=== PATIENT | female | born 1970 | race Caucasian/White ===

== ENCOUNTER 2020-09-03 10:00 | Outpatient (RCR) | payer OTHER, SELFPAY ==
--- NOTE | 2020-08-05 14:27 | HP.PTEVAL_ITS ---
Patient's Visit Information GUDELIA RAMIREZ is a 49 year old F referred to Physical Therapy by BYRON ROCK with a diagnosis of ANTERIOR LUMBAR FUSION 06/23/20. Date of Evaluation: 08/05/20 Physical Therapist: India Hogan, PT, Cert MDT - Visit Plan Frequency: 2-3x /Week Duration: 4-6 Weeks Plan: NO US OR E-STIM. CP AND/OR HOT PACK OK. POSTURE CORRECTION/STRENGTHENING, INSTRUCTION IN APPROPRIATE BODY MECHANICS AND ACTIVITY MODIFICATIONS. DLS STARTING WITH A NEUTRAL SPINE PROGRESSING ROM TOLERATED. CANDELARIA LE ROM, STRETCHING AND STRENGTHENING. HEP INSTRUCTION. 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 TENATIVE RTW DATE IS UNKNOWN. WORK INVOLVES A LOT OF EQUIPMENT MOVING AND PATIENT REPOSITIONING. Disability: SHORT TERM. Present symptoms: LOW BACK PAIN AND LEFT THIGH PAIN. SOME TINGLING IN THE BACK OF L THIGH AT TIMES. NO RIGHT LE SX'S EXCEPT RIGHT HIP AND GLUT TIGHTNESS. Present since: ABOUT A YEAR THEN EXACERBATED BY A FALL IN DECEMBER 2019. Pain Scale: WORST 6/10, LEAST 4/10. Currently: 6/10. Commenced as a result of: CHRONIC. Symptoms at onset: BACK AND LLE. Worse: PROLONGED SITTING, PROLONGED STANDING, BENDING, PUTTING ON SHOES. Better: IBUPROFEN, ICE, LYING DOWN. Disturbed sleep: NO. Previous history/Previous treatment: ABOUT 10 YEAR HISTORY OF LOW BACK PAIN. HAS PROGRESSIVELY GOT WORSE. CHIROPRACTIC. CHARLETTE'S. PT. PAIN PATCHES. PAIN PILLS. PATIENT REPORTS THE FALL DOWN THE GARAGE STEPS EVENTUALLY LEAD TO HAVING SURGERY. Treatment this episode: 06/23/[address] ROCK. Coughing/sneezing/straining: NEGATIVE. Gait: WALKING ON TREADMILL ABOUT 2 MILES A DAY. PATIENT REPORTS DECREASED STRIDE AND PAIN INCREASES OVER TIME MAKING IT MORE DIFFICULT TO CUSTODIAL OFFICER HER LEFT FOOT. Difficulty initiating urinatin: NO. Accidents: FALL. Unexplained weight loss: NO. Imaging: FOLLOW UP WITH DR. ROCK PENDING TUESDAY WITH EXPECTED X-RAY. S/P BACK SX 06/23/20: L5S1 DISCECTOMY, INSERTION OF BIOMECHANICAL DEVICE (ALIF), INSERTION OF ANTERIOR SPINAL INSTRUMENTATION, ANTERIOR INTERBODY ARTHRODESIS. PMH: CERVICAL DISC REPLACEMENTS. MOBI-C C5-C7 5 YEARS AGO AT [facility] BY DR. PANDYA. PALINDRO ARTHRITIS - SIMILAR TO RA. HYPOTHYROIDISM. R KNEE SURGERY - RECOVERED. CHRONIC THORACIC DISC HERNIATIONS AND L45 DISC HERNIATION NOT REPAIRED IN CURRENT SX BECAUSE PATIENT REPORTS IT WASN'T BAD ENOUGH. RESTRICTIONS: 2 WEEKS AGO BENDING AND TWISTING RESTRICTION WAS LIFTED. NO LIFTING > 30 LBS. UP TO ABOUT 8 LB DUMBELLS WITH BICEP CURLS. OTHER: FOR WORK NEEDS TO BE ABLE TO LIFT UP TO 50 LBS AND CARRY 25 LBS A DISTANCE. OTHER: PATIENT REPORTS SHE PUSHED TO GET SOME OF HER RESTRICTIONS LIFTED. - Objective Sitting/Standing Posture: FAIR. Lordosis: REDUCED. Lateral shift: NO. Relevant shift: N/A. Other Observations: INDEP GUARDED GAIT AND TRANSFERS. Motor deficit: CANDELARIA LE'S GROSSLY 4-/5 WITH MMT'ING. Sensory deficit: CANDELARIA LE LIGHT TOUCH SENSATION INTACT AND SYMMETRICAL. ROM deficit: TIGHT CANDELARIA LE HS'S. Reflexes: 2/3 CANDELARIA LE'S. Dural Signs: POSITIVE CANDELARIA LE'S. Lumbar mvmt loss: flex - MOD. ext - PIA. R SG - PIA. L SG - PIA. PATIENT C/O BACK TIGHTNESS AND BURNING WITH LUMBAR ROM TESTING. Core strength: POOR. Palpation: ANTERIOR ABDOMINAL INCISION LOOKS GOOD WITHOUT ANY SIGNS OF INFECTION. TREATMENT: NEUROMUSCULAR REEDUCATION - RETRAINING OF MVMT AND POSTURE FOR SITTING, LYING AND STANDING ACTIVITIES. INITIATED HEP WITH ISO ABDOMINALS AND CANDELARIA LE DURAL STRETCHING. - Goals Goal 1:: DECREASE C/O LOW BACK AND CANDELARIA LE SX'S. Goal Time Frame: 4-6 Weeks Goal 2:: IMRPOVE PERSONAL CARE, LIFTING, SITTING, STANDING, SOCIAL LIFE, TRAVEL, HOMEMAKING AND WORK FUNCTION. Goal Time Frame: 4-6 Weeks Goal 3:: INSTRUCT IN PROPHYLAXIS Goal Time Frame: 4-6 Weeks - Anticipated Interventions Patient/Client Instruction: Educate patient on: Condition, Plan of Care For the Purpose of:: To improve self management Therapeutic Exercise to Include: Strength training, Body mechanics, Postural training, Flexibilty training, Neuromotor development, In an aquatic setting, Dynamic Lumbar Stabilization Comment: CONSIDER AQUATIC THERAPY. DISCUSSED WITH PATIENT. For the Purpose of:: To decrease pain, To improve muscle performance and motor function, To increase tolerance to activity/condition/position, To improve ability of physical actions for home/community/work/leisure Thank you for the opportunity to evaluate your patient. For Medicare and Medicare HMO plans, please review the plan of care and approve it. It will need to be FAXED BACK to us at [phone] for Medicare purposes. For Medicare only, by signing this I certify the plan of care. Please let me know if there are questions or concerns regarding this plan of care. Physician Signature: Date:
--- NOTE | 2020-09-03 13:25 | HP.PTDCSUM ---
It has been my pleasure to treat GUDELIA RAMIREZ referred by BYRON ROCK, with the diagnosis of ANTERIOR LUMBAR FUSION 06/23/20 for a total of 11 visit(s). Discharge Date: Please see the following information for a summary of their discharge status. Subjective: PATIENT REPORTS SHE IS ABOUT 75% BETTER. REPORTS SHE HAS A VIRTUAL FOLLOW UP WITH DR. ROCK 09/19/20 AND TENTATIVE RTW 09/23/20. PATIENT REPORTS SHE FEELS READY TO GO BACK TO WORK WITH MORE BREAKS BUT DOESN'T HAVE ANY CONCERNS ABOUT DOING HER JOB FUNCTIONS. PATIENT REPORTS HER STRENGTH AND ROM ARE BETTER. SHE REPORTS HER ACTIVITY TOLERANCE IS ALSO BETTER. PATIENT REPORTS HER LEFT LEG DOES STILL FEEL WEAKER THAN THE RIGHT AND SHE STILL GETS L LE NUMBNESS THAT DOESN'T LAST MORE THAN A FEW HOURS IF SHE [id number]. PATIENT REPORTS INDEP WITH HOME EX PROGRAM. PATIENT REPORTS SHE FEELS READY TO CONTINUE CONDITIONING ON HER OWN AT THIS POINT. PATIENT HAS A HOME GYM. LOW BACK Pain Intensity (Out of 10): 2 L HIP Pain Intensity (Out of 10): 2 ABDOMINAL INCISION AREA Pain Intensity (Out of 10): N/A % Improvement: 75 Objective/Function: Motor deficit: CANDELARIA LE'S GROSSLY 5/5 WITH MMT'ING EXEPT RIGHT HIP 4/5 AND L HIP 4-/5. Sensory deficit: CANDELARIA LE LIGHT TOUCH SENSATION INTACT AND SYMMETRICAL. PATIENT WAS SEEN TODAY FOR RE-ASSESSMENT OF PROGRESS TOWARD THE SET PT GOALS AND THE NEED FOR FURTHER PHYSICAL THERAPY VS READINESS FOR DISCHARGE. PATIENT HAS MADE GOOD PROGRESS TOWARD ALL PT GOALS AND IS APPROPRIATE FOR DISCHARGE TO [facility] AT THIS TIME. PATIENT IS AGREEABLE. SHE DOES STILL DEMO L LE WEAKNESS COMPARED TO R AND SHE ALSO CONTINUES TO HAVE DECREASED LUMBAR ROM ALL PLANES BUT THESE HAVE IMRPOVED. UPON EXAM TODAY: ROM deficit: TIGHT CANDELARIA LE HS'S. Dural Signs: POSITIVE L LE, NEGATIVE R LE. Lumbar mvmt loss: flex - MOD. ext - MOD. R SG - PIA. L SG - PIA. PATIENT DENIES INCREASED PAIN WITH LUMBAR ROM TESTING ALL PLANES. Core strength: POOR. OTHER: PATIENT IS NOW ABLE TO SLS ON THE R LE X > 20 SEC AND SINGLE LEG HEEL RAISE. SHE IS ALSO ABLE TO SLS ON THE L LE X > 20 SEC BUT THIS IS A BIT MORE UNSTEADY AND SHE IS ABLE TO SINGLE LEG HEEL RAISE ON THE LEFT ALSO AFTER TWO ATTEMPS. Goal 1:: DECREASE C/O LOW BACK AND CANDELARIA LE SX'S. Goal Progress: Goal Met Goal 2:: IMRPOVE PERSONAL CARE, LIFTING, SITTING, STANDING, SOCIAL LIFE, TRAVEL, HOMEMAKING AND WORK FUNCTION. Goal Progress: Goal Met Goal 3:: INSTRUCT IN PROPHYLAXIS Goal Progress: Goal Met Plan: D/C TO HEP. PATIENT AGREEABLE. If there are questions or concerns regarding this patient's physical therapy, please feel free to call me at [phone]. Thank you for the referral of this patient. Sincerely, India Hogan, PT, Cert MDT
== END 2020-09-03 19:00 | disposition home or self-care (01) ==
LOC: PT 10:00
PROVIDERS: PCP Family Medicine
DX: M48.061 Spinal stenosis, lumbar region without neurogenic claudication (principal); Z98.1 Arthrodesis status
CPT/HCPCS: 97110; 97112; 97162; 97164; 97530

== ENCOUNTER 2020-10-09 16:54 | Outpatient (RCR) | payer OTHER, SELFPAY ==
--- NOTE | 2021-04-06 07:59 | HP.PT.NRP ---
GUDELIA M ASHLEY was seen in my office for initial evaluation on . The following Plan of Care was established for this patient: This patient was last seen in our office . Pertinent comments regarding their Physical therapy will appear below: Self pay DN- d/c At this point I will be discontinuing this patient from physical therapy. I would be happy to see this patient again in the future if found appropriate by the physician. Thank you! LULU StaleyT
== END 2020-10-09 19:00 | disposition home or self-care (01) ==
LOC: PT 16:54
PROVIDERS: PCP Family Medicine
DX: R69 Illness, unspecified (principal)
CPT/HCPCS: 97140

== ENCOUNTER 2023-02-28 15:00 | Outpatient (RCR) | payer OTHER, SELFPAY ==
--- NOTE | 2023-01-18 13:23 | HP.PTEVAL ---
Patient's Visit Information Visit Information Visit Information: GUDELIA RAMIREZ is a 52 year old F referred to Physical Therapy by AJIT ARMSTRONG with a diagnosis of Lumbar radiculopathy. Date of Evaluation: 01/12/23 Physical Therapist: Carson Sigala DPT Visit Plan Frequency: 1x/Week Duration: 6 Weeks Plan: Start with neutral spine core stability. Focus on control and proper TA activation. Work on control of movements. Progress to dynamic stability as tolerated. Subjective Subjective: Pt. is here today for her initial evaluation with diagnosis of lumbar radiculopathy, SI joint pain, muscle spasm. Pt. has had multiple cervical surguries in her past, and 1 lumbar fusion of L5/S1. Pt. reports increased pain with prolonged standing and sitting. She has pain that does go down her leg frequently. Pt. has not had a new MRI since her last surgery. 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 She reports having issues with transferring and with any bending over. Pt. is sleeping okay, but mornings are painful. Pt. is having some tingling as well with her LLE. Pt. has stopped working out a bit due to her pain. No saddle region pain, no changes in B/B. Pt. is hopeful to reduce symptoms in order to get back to all work and recreational activities without limitations. Pain lumbar spine: Pain Intensity (Out of 10): 3 Pain Intensity Range: 0 and 6 Objective Objective: POSTURE: Pt. has decent posture in stance. No lateral shift noted. No fwrd flexed posture. Normal wt. distribution between BLEs. PALPATION: Pt. has tenderness throughout lumbar spine. Pt. has some SI pain as well on L side. NEURO: Pt. has some N/T in her LLE. Pt. has normal sensation to light touch. Pt. has no myotomal weakness noted in either LE. ROM: LUMBAR SPINE: flexion min loss increase NW, ext min loss increase NW, SB nil loss NE bilat, rotation nil/min loss NE bilat. Pt. has some tightness in B HS, slight tightness in B hip flexors. MMT: Pt. has 5/5 strength throughout BLE distal LE. PT. ahs 4+/5 B hip strength., core strength fair-. GAIT: PT. has normal gait pattern without use of AD, slight loss in bilateral arm swing. Special Tests L/S Slump test left side: Positive L/S Slump test right side: Negative L/S Left Straight Leg Raise: Positive L/S Right Straight Leg Raise: Negative Lumbar Standing: Flexion - Mechanical Response: No effect Lumbar Standing: Flexion - Symptoms During Testing: Increases Lumbar Standing: Flexion - Symptoms After Testing: No worse Lumbar Standing: Extension - Mechanical Response: No effect Lumbar Standing: Extension - Symptoms During Testing: Increases Lumbar Standing: Extension - Symptoms After Testing: No worse Lumbar Standing: Right Side Glides - Mechanical Response: No effect Lumbar Standing: Right Side [place] - Symptoms During Testing: No effect Lumbar Standing: Right Side [place] - Symptoms After Testing: No effect Lumbar Standing: Left Side [place] - Mechanical Response: No effect Lumbar Standing: Left Side [place] - Symptoms During Testing: No effect Lumbar Standing: Left Side [place] - Symptoms After Testing: No effect Lumbar Lying: Flexion - Mechanical Response: No effect Lumbar Lying: Flexion - Symptoms During Testing: Decreases Lumbar Lying: Flexion - Symptoms After Testing: No worse Lumbar Lying: Extension - Mechanical Response: No effect Lumbar Lying: Extension - Symptoms During Testing: Increases Lumbar Lying: Extension - Symptoms After Testing: No worse Balance/Special Test Scores Oswestry Low Back Score: 13 Goals Goal 1:: LTG: Pt. to be I with HEP for core stability. Goal Time Frame: 4-6 Weeks Goal 2:: LTG: Pt. to be able to sleep throughout the night without increase lumbar or LLE pain. Goal Time Frame: 4-6 Weeks Goal 3:: LTG: Pt. to have increased core strength to fair in order to reduce stress applied to lumbar spine. Goal Time Frame: 4-6 Weeks Goal 4:: LTG: Pt. to complete all work related activities without increase in symptoms. Goal Time Frame: 4-6 Weeks Goal 5:: LTG: Pt. to resume all recreational working out without increase in lumbar spine pain. Goal Time Frame: 4-6 Weeks Rehabilitation Potential Physical Therapy Diagnosis: Pt. has signs and symptoms consistent with lumbar radiculopathy. Pt. has increased symptoms with bending movement her spine any lifting and prolonged sitting/standing activities. Pt. would benefit from PT to reduce symptoms, but also worse on core stability to reduce stress applied to lumbar spine with all daily and work activities. Rehabilitation Potential: Good Anticipated Interventions Patient/Client Instruction: Educate patient on: Condition, Plan of Care, Risk Factors and Benefits of Fitness Program For the Purpose of:: To improve decision making, To facilitate caregiver knowledge, To improve self management, To prevent re-injury, To improve ability to perform tasks related to life management and To improve tolerance to ADL's Therapeutic Exercise to Include: Strength training, Body mechanics, Postural training, Flexibilty training, Gait and locomotor training, Dynamic Lumbar Stabilization and Chidi Exercises For the Purpose of:: To decrease pain, To increase ROM, To improve nutrient delivery to tissue, To increase oxygenation perfusion, To improve muscle performance and motor function, To improve ability to perform ADL's and To increase tolerance to activity/condition/position Text: Thank you for the opportunity to evaluate your patient. For Medicare and Medicare HMO plans, please review the plan of care and approve it. It will need to be FAXED BACK to us at [phone] for Medicare purposes. For Medicare only, by signing this I certify the plan of care. Please let me know if there are questions or concerns regarding this plan of care. Physician Signature: Date:
== END 2023-02-28 19:00 | disposition home or self-care (01) ==
LOC: PT 15:00
PROVIDERS: PCP Family Medicine
DX: M54.16 Radiculopathy, lumbar region (principal); M53.3 Sacrococcygeal disorders, not elsewhere classified; M62.838 Other muscle spasm
CPT/HCPCS: 97110; 97161

== ENCOUNTER 2024-04-23 15:00 | Outpatient (RCR) | payer OTHER, SELFPAY ==
--- NOTE | 2024-02-23 10:39 | HP.OTEVAL_ITS ---
Patient's Visit Information Visit Information Visit Information: GUDELIA RMAIREZ is a 53 year old F, referred to Occupational Therapy by PEDRO LUIS LINARES, with a diagnosis of left CMC arthroplasty. Date of Evaluation: 02/22/24 Occupational Therapist: COSME Kendrick/Blaise, CHT Subjective Subjective: This 53 year old female was seen for OT eval with dx of left CMC arthritis. Pt states for years she had difficulty with pain and limited use of l eft hand with ADLs. She decided to have sx. Underwent left cmc arthroplasty ( suture suspension A #2 fiberwire suture placed through the APL insertion than through the FCR twice ( once with locking loop) than back through the APL, Than FCR than final time through the FCR insertion ( APL suspension) by Dr. Llanes on 02/08/24, hand has been cleared for [facility] protocol. Pt is right handed. Pt to return to work returns to [employer] Mar 21 or pt states orthosis is fitting well at this time. 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 Pain left hand: Current Pain Intensity: 3 Pain Intensity Range: 4 ROM Wrist: right 75/ 70 left 40/30 CMC: right 10 left NT MP: right 60 left 40 IP: right 75 left 50 Strength Decorating Consultant: right 55# left NT Lateral Pinch: right 16# left NT Tripod Pinch: right 14# left NT Strength Comments: will not test retail pricing coordinator /pinch strength until week 8 Sensation Sensation Comments: left thumb 3.61 distal MP Quick DASH-Disab of Arm,Shoulder& Hand Quick DASH Score: 75.0000 Goals Goal:100% adherence to protocol: Yes Comment: [facility] Goal:Daily scar massage when approriate: Yes Goal:ROM equal to unaffected hand: Yes Goal:Decorating Consultant/Pinch strength at least 75% of unaffected hand: Yes Comment: will not initiate until week 8 unless otherwise indicated by Goal:No pain with affected hand use: Yes Goal:Full use of affected hand in daily activities including work: Yes Goal:Improvement in sensation documented by [place] monofiliaments: Yes Goal:Decrease scar hypersensitivity: Yes Rehabilitation General Assessment: pt arrives s/p 2 weeks from a left thumb cmc arthroplasty by Dr. Llanes on 02/08/24. Pt is limited with all aspects of her daily occupation due to newly healing structures. Pt demo need for skilled OT services 1-2x week for 8 -10 weeks to return pt to her PLOF. Today therapist reviewed [facility] Protocol from [employer]. pt demo understanding and agrees to POC. Rehabilitation Potential: Good Anticipated Interventions Anticipated Interventions: A/AAROM/PROM, Strengthening, Edema Control, Scar Care, Triggerpoint Release, Desensitization, Sensory Retraining, Modalities, Orthoses, Joint Protection/Energy Conservation, Ergonomic Education, Education re assistive Equipment, Education re Diagnosis and Home Program Visit Plan Frequency: 1-2x /Week Duration: 2 Months General Plan: [facility] from Trapeziometacarpal Joint: Arthroplasty/ Trapexiectomy TEXT: Thank you for the opportunity to evaluate your patient. For Medicare and Medicare HMO plans, please review the plan of care and approve it. It will need to be FAXED BACK to us at [phone] for Medicare purposes. Please let me know if there are questions or concerns regarding this plan of care. Physician Signature: Date:
--- NOTE | 2024-03-19 11:30 | OTREVAL_ITS ---
Re-Evaluation Intro: PEDRO LUIS LINARES, It has been my pleasure to treat GUDELIA RAMIREZ over the last 4 visits for left CMC arthroplasty. Please see the progress note below for an update on the occupational therapy plan of care! Subjective Subjective: pt arrives 5 weeks and 4 days following cmc arthroplasty - ( following green pathway) Objective Objective/Function: left wrist ROM 55/55 increase from 40/30 left cmc 0 initial was +10 left MP 50 left IP 55 left government relations analyst strength 17# left pinch will be tested at later date ( about 8 weeks) pt progress well with green pathway from cmc arthroplasty Plan Plan Frequency: 1-2x /Week Duration: 2 Months Plan: cont with green guidelines Goals Goals Patient Goals: Use Hand/Wrist/Arm Normally Again and Be More Independent in ADLS Goal:100% adherence to protocol: Yes Goal:Daily scar massage when approriate: Yes Goal:ROM equal to unaffected hand: Yes Goal:Wire Brush Maker/Pinch strength at least 75% of unaffected hand: Yes Goal:No pain with affected hand use: Yes Goal:Full use of affected hand in daily activities including work: Yes Goal:Improvement in sensation documented by [place] monofiliaments: Yes Goal:Decrease scar hypersensitivity: Yes Anticipated Interventions Anticipated Interventions Anticipated Interventions: A/AAROM/PROM, Strengthening, Edema Control, Scar Care, Triggerpoint Release, Desensitization, Sensory Retraining, Modalities, Orthoses, Joint Protection/Energy Conservation, Ergonomic Education, Education re assistive Equipment, Education re Diagnosis and Home Program Re-Evaluation Ending Re-evaluation ending: Please do not hesitate to contact me at [phone] by phone or if you have questions or concerns regarding this new plan of care! Sincerely, Araseli Khan, OTR/L, CHT
--- NOTE | 2024-08-03 11:19 | HP.OT.NRP ---
Patient Information Patient Information: GUDELIA RAMIREZ was seen in my office for initial evaluation on 02/22/24. The following Plan of Care was established for this patient: POC Established Initial Frequency: 1-2x /Week Initial Duration: 2 Months Plan: cont with green guidelines Anticipated Interventions Anticipated Interventions: A/AAROM/PROM, Strengthening, Edema Control, Scar Care, Triggerpoint Release, Desensitization, Sensory Retraining, Modalities, Orthoses, Joint Protection/Energy Conservation, Ergonomic Education, Education re assistive Equipment, Education re Diagnosis and Home Program Last Seen Last Seen: This patient was last seen in our office 04/23/24. Pertinent comments regarding their Occupational therapy will appear below: pt was seen for OT services following a cmc arthroplasty- pt was last seen on 04/23/24. Due to time lapse in services pt is d/c. At this point I will be discontinuing this patient from occupational therapy. I would be happy to see this patient again in the future if found appropriate by the physician. Thank you! Araseli Khan, OTR/L, CHT
== END 2024-04-23 19:00 | disposition home or self-care (01) ==
LOC: OT 15:00
PROVIDERS: PCP Family Medicine
DX: M18.12 Unilateral primary osteoarthritis of first carpometacarpal joint, left hand (principal)
CPT/HCPCS: 97110; 97140; 97166; 97530